=== PATIENT | male | born 1975 | race Caucasian/White ===

== ENCOUNTER 2019-04-22 11:32 | Emergency (ER) | payer SELFPAY ==
[~2019-04-22] VITALS: Ht 188 cm; Wt 99.8 kg
[2019-04-22 11:35] VITALS: BP 146/79
--- NOTE | 2019-04-22 11:48 | NUR ---
PT HERE WITH C/O OF INFECTION TO LEFT PALM. PT STATES HE GOT SPLINTERS IN IT APPROX. 6 WEEKS AGO AND WAS ABLE TO GET ALL EXCEPT ONE OUT. REDNESS NOTED TO LEFT HAND, MINIMAL SWELLING. PT AAO X 4, NAD, ROOM AIR, CALL LIGHT WITHIN REACH. PA AT BEDSIDE FOR EXAM.
--- NOTE | 2019-04-22 11:53 | NUR ---
PT AMBULATORY TO XRAY WITH WIRE HANGER.
[2019-04-22] MEDS ORDERED: LIDOCAINE-MPF 1%, 5ML ONE (11:54)
--- NOTE | 2019-04-22 11:57 | NUR ---
PT BACK FROM XRAY.
[2019-04-22] MEDS ORDERED: LIDOCAINE-MPF 1%, 5ML INFIL ONE (12:00)
--- NOTE | 2019-04-22 12:02 | NUR ---
PA AT BEDSIDE FOR I&D.
--- NOTE | 2019-04-22 12:30 | NUR ---
ALL RESULTS BACK AT THIS TIME, CHART UP FOR RECHECK.
--- NOTE | 2019-04-22 13:11 | NUR ---
Patient/Caregiver given discharge instructions and they have confirmed that they understand the instructions. Patient ambulatory with steady gait.
== END 2019-04-22 13:13 | disposition home or self-care (01) ==
LOC: ED 12:26
DX: L02.512 Cutaneous abscess of left hand (principal); T16.2XXA Foreign body in left ear, initial encounter; F17.200 Nicotine dependence, unspecified, uncomplicated; Z90.89 Acquired absence of other organs; X58.XXXA Exposure to other specified factors, initial encounter; Y93.89 Activity, other specified; Y92.89 Other specified places as the place of occurrence of the external cause; Y99.8 Other external cause status
CPT/HCPCS: 10060; 99283

== ENCOUNTER 2019-04-24 09:05 | Emergency (ER) | payer SELFPAY ==
[~2019-04-24] VITALS: Ht 190.5 cm; Wt 100.0 kg
--- NOTE | 2019-04-24 09:53 | NUR ---
Patient/Caregiver given discharge instructions and they have confirmed that they understand the instructions. Patient ambulatory with steady gait.
[2019-04-24 09:54] VITALS: BP 130/88
== END 2019-04-24 09:56 | disposition home or self-care (01) ==
LOC: ED 09:30
DX: Z48.01 Encounter for change or removal of surgical wound dressing (principal)
CPT/HCPCS: 99282